=== PATIENT | male | born 1950 | race Caucasian/White ===

== ENCOUNTER 2017-12-03 14:32 | Inpatient (IN) | payer OTHER ==
[2017-12-03 15:31] VITALS: BMI 23.6
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
[2017-12-03] MEDS ORDERED: LOPERAMIDE HCL 2 MG CAPSULE PO PRN (17:16)
[2017-12-03] MEDS ORDERED: P-EPHED 60MG/TRIPROLIDI 2.5MG TABLET PO PRN (17:16)
[2017-12-03] MEDS ORDERED: guaiFENesin/D-METHORPHAN HB 10 ML UNIT-DOSE CUPS PO PRN (17:16)
[2017-12-03] MEDS ORDERED: MAGNESIUM HYDROX 2400MG/30ML ORAL SUSPENSION 30 ML CUP PO PRN (17:16)
[2017-12-03] MEDS ORDERED: MENTHOL/PHENOL 1 EACH UD MM PRN (17:16)
[2017-12-03] MEDS ORDERED: MAGNESIUM CITRATE 300 ML BOTTLE PO PRN (17:16)
[2017-12-03] MEDS ORDERED: IBUPROFEN 400 MG TABLET (FP) PO PRN (17:16)
[2017-12-03] MEDS ORDERED: MAG HYDROX/AL HYDROX/SIMETH 30 ML UNIT-DOSE CUP PO PRN (17:16)
[2017-12-03] MEDS ORDERED: METHADONE HCL 10 MG TABLET (FOR DETOX USE ONLY) PO ONE ×2 (17:16→23:00)
[2017-12-03] MEDS ORDERED: ACETAMINOPHEN 325 MG TABLET (FP) PO PRN (17:16)
[2017-12-03] MEDS ORDERED: chlordiazePOXIDE HCL 25 MG CAPSULE PO ONE (17:19)
[2017-12-03] MEDS ORDERED: chlordiazePOXIDE HCL 25 MG CAPSULE PO PRN (17:19)
[2017-12-03] MEDS: NICOTINE 21 MG/24 HOURS TOPICAL PATCH TD SCH (18:24)
[2017-12-03 22:01] LABS: URINE APPEARANCE TURBID; URINE BILIRUBIN NEGATIVE (<2.0 mg/dL); URINE COLOR YELLOW; URINE GLUCOSE (UA) NEGATIVE (NEGATIVE); URINE KETONE NEGATIVE (NEGATIVE); URINE LEUK ESTERASE NEGATIVE (NEGATIVE); URINE NITRITE NEGATIVE (NEGATIVE); URINE UROBILINOGEN 4.0 E.U/dl mg/dL (0.2-1.0)
[2017-12-03 22:02] LABS: URINE PROTEIN 1+ (NEGATIVE)
[2017-12-03 22:08] LABS: URINE MUCUS FEW
[2017-12-03] MEDS: THIAMINE HCL 100 MG TABLET (FP) PO SCH (22:17)
[2017-12-03] MEDS: chlordiazePOXIDE HCL 25 MG CAPSULE PO SCH (22:17)
[2017-12-03] MEDS: NICOTINE POLACRILEX 2 MG GUM BC PRN (22:20)
[2017-12-04] MEDS: chlordiazePOXIDE HCL 25 MG CAPSULE PO SCH ×4 (05:56→22:16)
[2017-12-04] MEDS: NICOTINE POLACRILEX 2 MG GUM BC PRN ×2 (06:14→10:13)
--- NOTE | 2017-12-04 08:49 | EKG ---
Test Reason : Blood Pressure : / mmHG Vent. Rate : 060 BPM Atrial Rate : 060 BPM P-R Int : 152 ms QRS Dur : 086 ms QT Int : 412 ms P-R-T Axes : 022 025 047 degrees QTc Int : 412 ms NORMAL SINUS RHYTHM NORMAL ECG NO PREVIOUS ECGS AVAILABLE Confirmed by SHANE AVILA, VAL ([id number]) on 12/04/2017 8:49:20 AM Referred By: Confirmed By:VAL LYNN MD
[2017-12-04] MEDS ORDERED: METHADONE HCL 10 MG TABLET (FOR DETOX USE ONLY) PO ONE (10:00)
[2017-12-04] MEDS: NICOTINE 21 MG/24 HOURS TOPICAL PATCH TD SCH (10:11)
[2017-12-04] MEDS: PRENATAL VITAMINS W/ FOLIC ACID TABLET (FP) PO SCH (10:12)
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
[2017-12-04 10:33] LABS: HEMATOCRIT 44.1 % (35.4-49); HEMOGLOBIN 14.4 GM/dL (11.7-16.9); MCH 28.8 pg (25.7-33.7); MCHC 32.7 g/dl (32.0-35.9); MEAN CELL VOLUME 88.1 fl (80-96); MEAN PLT VOLUME 10.4 fl (7.5-11.1); PLATELET COUNT 117 K/MM3 (134-434); RBC 5.01 M/mm3 (4.00-5.60); RDW 13.7 % (11.9-15.9); WHITE BLOOD COUNT 6.3 K/mm3 (4.0-10.0)
[2017-12-04 10:48] LABS: ALBUMIN 3.6 g/dl (3.4-5.0); ANION GAP 5 (8-16); BLOOD UREA NITROGEN 16 mg/dL (7-18); CALCIUM 8.5 mg/dL (8.5-10.1); CHLORIDE 109 mmol/L (98-107); CO2 29 mmol/L (21-32); GLUCOSE,RANDOM 103 mg/dL (74-106); POTASSIUM 4.1 mmol/L (3.5-5.1); SODIUM 143 mmol/L (136-145)
[2017-12-04 10:59] LABS: ALK PHOS 83 U/L (45-117); BILIRUBIN,TOTAL 0.5 mg/dL (0.2-1.0); CREATININE 1.1 mg/dL (0.7-1.3); SGOT/AST 29 U/L (15-37); SGPT/ALT 33 U/L (12-78); TOT PROT 7.2 g/dl (6.4-8.2)
--- NOTE | 2017-12-04 14:28 | PN ---
[facility] CIWA - CIWA Score Nausea/Vomitin Muscle Tremors: 3 Anxiety: 3 Agitation: 3 Paroxysmal Sweats: 3 Orientation: 0-Oriented Tacttile Disturbances: 0-None Auditory Disturbances: 0-None Visual Disturbances: 0-None Headache: 0-None Present CIWA-Ar Total Score: 15 S COWS - Scale Resting Pulse: 0= [place] 80 or Below Sweatin=Flushed/Facial Moisture Restless Observation: 0= Sits Still Pupil Size: 0= Normal to Room Light Bone or Joint Aches: 1= Mild Discomfort Runny Nose/ Eye Tearin= Nasal Congestion GI Upset > 30mins: 1= Stomach Cramp Tremor Observation of Outstretched Hands: 2= Slight Tremor Visible Yawning Observation: 1= 1-2x During Session Anxiety or Irritability: 2=Irritable/Anxious Goose Flesh Skin: 0=Smooth Skin COWS Score: 10 [facility] Progress Note (SOAP) Subjective: Sleep disturbance Sweats abd cramp chills Objective: 12/04/17 14:21 A & O x 3 Vital Signs Temperature 96.6 F L 12/04/17 13:04 Pulse Rate 78 12/04/17 13:04 Respiratory Rate 18 12/04/17 13:04 Blood Pressure 104/67 12/04/17 13:04 O2 Sat by Pulse Oximetry (%) Laboratory Last Values WBC 6.3 K/mm3 (4.0-10.0) 12/04/17 07:55 RBC 5.01 M/mm3 (4.00-5.60) 12/04/17 07:55 Hgb 14.4 GM/dL (11.7-16.9) 12/04/17 07:55 Hct 44.1 % (35.4-49) 12/04/17 07:55 MCV 88.1 fl (80-96) 12/04/17 07:55 MCH 28.8 pg (25.7-33.7) 12/04/17 07:55 MCHC 32.7 g/dl (32.0-35.9) 12/04/17 07:55 RDW 13.7 % (11.9-15.9) 12/04/17 07:55 Plt Count 117 K/MM3 (134-434) L 12/04/17 07:55 MPV 10.4 fl (7.5-11.1) 12/04/17 07:55 Sodium 143 mmol/L (136-145) 12/04/17 07:55 Potassium 4.1 mmol/L (3.5-5.1) 12/04/17 07:55 Chloride 109 mmol/L (98-107) H 12/04/17 07:55 Carbon Dioxide 29 mmol/L (21-32) 12/04/17 07:55 Anion Gap 5 (8-16) L 12/04/17 07:55 BUN 16 mg/dL (7-18) 12/04/17 07:55 Creatinine 1.1 mg/dL (0.7-1.3) 12/04/17 07:55 Creat Clearance w eGFR > 60 (>60) 12/04/17 07:55 POC Glucometer 120 UNITS (80-120) 12/04/17 05:58 Random Glucose 103 mg/dL (74-106) 12/04/17 07:55 Calcium 8.5 mg/dL (8.5-10.1) 12/04/17 07:55 Total Bilirubin 0.5 mg/dL (0.2-1.0) 12/04/17 07:55 AST 29 U/L (15-37) 12/04/17 07:55 ALT 33 U/L (12-78) 12/04/17 07:55 Alkaline Phosphatase 83 U/L (45-117) 12/04/17 07:55 Total Protein 7.2 g/dl (6.4-8.2) 12/04/17 07:55 Albumin 3.6 g/dl (3.4-5.0) 12/04/17 07:55 Urine Color Yellow 12/03/17 20:00 Urine Appearance Turbid 12/03/17 20:00 Urine pH 5.0 (5.0-8.0) 12/03/17 20:00 Ur Specific [place] 1.031 (1.001-1.035) 12/03/17 20:00 Urine Protein 1+ (NEGATIVE) H 12/03/17 20:00 Urine Glucose (UA) Negative (NEGATIVE) 12/03/17 20:00 Urine Ketones Negative (NEGATIVE) 12/03/17 20:00 Urine Blood Negative (NEGATIVE) 12/03/17 20:00 Urine Nitrite Negative (NEGATIVE) 12/03/17 20:00 Urine Bilirubin Negative (<2.0 mg/dL) 12/03/17 20:00 Urine Urobilinogen 4.0 e.u/dl mg/dL (0.2-1.0) 12/03/17 20:00 Ur Leukocyte Esterase Negative (NEGATIVE) 12/03/17 20:00 Urine WBC (Auto) 45 /hpf (3-5) 12/03/17 20:00 Urine RBC (Auto) 2 /hpf (0-3) 12/03/17 20:00 Urine Mucus Few 12/03/17 20:00 RPR Titer Nonreactive (NONREACTIVE) 12/04/17 07:55 labs noted; urine turbid, abnormal Assessment: 12/04/17 14:28 withdrawal sx abnormal urine test Plan: continue detox increase hydration
[2017-12-04] MEDS: THIAMINE HCL 100 MG TABLET (FP) PO SCH (22:16)
[2017-12-04] MEDS: MELATONIN 5 MG TABLETS PO PRN (22:17)
[2017-12-05] MEDS: chlordiazePOXIDE HCL 25 MG CAPSULE PO SCH ×3 (05:54→16:43)
[2017-12-05] MEDS ORDERED: METHADONE HCL 5 MG TABLET (FOR DETOX USE ONLY) PO ONE (10:00)
[2017-12-05] MEDS: NICOTINE 21 MG/24 HOURS TOPICAL PATCH TD SCH (10:18)
[2017-12-05] MEDS: NICOTINE POLACRILEX 2 MG GUM BC PRN (10:19)
[2017-12-05] MEDS: PRENATAL VITAMINS W/ FOLIC ACID TABLET (FP) PO SCH (10:19)
[2017-12-05] MEDS: THIAMINE HCL 100 MG TABLET (FP) PO SCH (22:15)
[2017-12-05] MEDS: chlordiazePOXIDE 5 MG CAPSULE PO SCH (22:15)
--- NOTE | 2017-12-05 22:15 | PN ---
S CIWA - CIWA Score Nausea/Vomitin-No Nausea/No Vomiting Muscle Tremors: 3 Anxiety: 4-Mod. Anxious/Guarded Agitation: 3 Paroxysmal Sweats: No Perspiration Orientation: 2-Disoriented Date<2 days Tacttile Disturbances: 2-Mild Itch/Numbness/Burn Auditory Disturbances: 0-None Visual Disturbances: 2-Mild Sensitivity Headache: 0-None Present CIWA-Ar Total Score: 16 BHS COWS - Scale Resting Pulse: 0= [place] 80 or Below Sweatin= No chills or Flushing Restless Observation: 1= Difficult to Sit Still Pupil Size: 0= Normal to Room Light Bone or Joint Aches: 0= None Runny Nose/ Eye Tearin= Runny Nose/Eyes GI Upset > 30mins: 2= Nausea/Diarrhea Tremor Observation of Outstretched Hands: 2= Slight Tremor Visible Yawning Observation: 1= 1-2x During Session Anxiety or Irritability: 2=Irritable/Anxious Goose Flesh Skin: 3=Piloerection COWS Score: 13 S Progress Note (SOAP) Subjective: Tremors, Anxious, Stomach Cramping, Diarrhea. Objective: PATIENT A & O X 2 (UNCERTAIN ABOUT CURRENT DAY / DATE). PATIENT OBSERVED AMBULATING ON UNIT. NO ACUTE DISTRESS. 12/05/17 22:13 Vital Signs Temperature 96.7 F L 12/05/17 21:59 Pulse Rate 61 12/05/17 21:59 Respiratory Rate 16 12/05/17 21:59 Blood Pressure 147/68 12/05/17 21:59 O2 Sat by Pulse Oximetry (%) Laboratory Tests 12/03/17 12/03/17 12/04/17 16:11 20:00 05:58 WBC RBC Hgb Hct MCV MCH MCHC RDW Plt Count MPV Sodium Potassium Chloride Carbon Dioxide Anion Gap BUN Creatinine Creat Clearance w eGFR POC Glucometer 115 120 Random Glucose Calcium Total Bilirubin AST ALT Alkaline Phosphatase Total Protein Albumin Urine Color Yellow Urine Appearance Turbid Urine pH 5.0 Ur Specific [place] 1.031 Urine Protein 1+ H Urine Glucose (UA) Negative Urine Ketones Negative Urine Blood Negative Urine Nitrite Negative Urine Bilirubin Negative Urine Urobilinogen 4.0 e.u/dl Ur Leukocyte Esterase Negative Urine WBC (Auto) 45 Urine RBC (Auto) 2 Urine Mucus Few RPR Titer 05/12/04/17 12/04/17 07:55 07:55 07:55 WBC 6.3 RBC 5.01 Hgb 14.4 Hct 44.1 MCV 88.1 MCH 28.8 MCHC 32.7 RDW 13.7 Plt Count 117 L MPV 10.4 Sodium 143 Potassium 4.1 Chloride 109 H Carbon Dioxide 29 Anion Gap 5 L BUN 16 Creatinine 1.1 Creat Clearance w eGFR > 60 POC Glucometer Random Glucose 103 Calcium 8.5 Total Bilirubin 0.5 AST 29 ALT 33 Alkaline Phosphatase 83 Total Protein 7.2 Albumin 3.6 Urine Color Urine Appearance Urine pH Ur Specific [place] Urine Protein Urine Glucose (UA) Urine Ketones Urine Blood Urine Nitrite Urine Bilirubin Urine Urobilinogen Ur Leukocyte Esterase Urine WBC (Auto) Urine RBC (Auto) Urine Mucus RPR Titer Nonreactive LABS NOTED. Assessment: 12/05/17 22:13 WITHDRAWAL SYMPTOMS. Plan: CONTINUE DETOX. INCREASE DAILY PO FLUID INTAKE. PRN IMMODIUM FOR DIARRHEA.
[2017-12-05] MEDS: MELATONIN 5 MG TABLETS PO PRN (22:35)
[2017-12-06] MEDS: chlordiazePOXIDE 5 MG CAPSULE PO SCH ×3 (05:18→17:31)
[2017-12-06] MEDS ORDERED: METHADONE HCL 5 MG TABLET (FOR DETOX USE ONLY) PO ONE (10:00)
[2017-12-06] MEDS: NICOTINE POLACRILEX 2 MG GUM BC PRN ×2 (10:05→22:23)
[2017-12-06] MEDS: PRENATAL VITAMINS W/ FOLIC ACID TABLET (FP) PO SCH (10:06)
[2017-12-06] MEDS: NICOTINE 21 MG/24 HOURS TOPICAL PATCH TD SCH (10:06)
[2017-12-06] MEDS: METHYL SALICYLATE/MENTHOL OINT 30 GM TUBE TP SCH ×2 (11:12→22:18)
--- NOTE | 2017-12-06 14:00 | PN ---
BHS Progress Note (SOAP) Subjective: Body Aches, Anxious, Interrupted Sleep. Objective: PATIENT A & O X 3, OBSERVED AMBULATING ON UNIT. NO ACUTE DISTRESS. 12/06/17 13:59 Vital Signs Temperature 97.9 F 12/06/17 13:40 Pulse Rate 59 L 12/06/17 13:40 Respiratory Rate 18 12/06/17 13:40 Blood Pressure 119/59 12/06/17 13:40 O2 Sat by Pulse Oximetry (%) Laboratory Tests 12/03/17 12/03/17 12/04/17 16:11 20:00 05:58 WBC RBC Hgb Hct MCV MCH MCHC RDW Plt Count MPV Sodium Potassium Chloride Carbon Dioxide Anion Gap BUN Creatinine Creat Clearance w eGFR POC Glucometer 115 120 Random Glucose Calcium Total Bilirubin AST ALT Alkaline Phosphatase Total Protein Albumin Urine Color Yellow Urine Appearance Turbid Urine pH 5.0 Ur Specific [place] 1.031 Urine Protein 1+ H Urine Glucose (UA) Negative Urine Ketones Negative Urine Blood Negative Urine Nitrite Negative Urine Bilirubin Negative Urine Urobilinogen 4.0 e.u/dl Ur Leukocyte Esterase Negative Urine WBC (Auto) 45 Urine RBC (Auto) 2 Urine Mucus Few RPR Titer 12/04/17 12/04/17 12/04/17 07:55 07:55 07:55 WBC 6.3 RBC 5.01 Hgb 14.4 Hct 44.1 MCV 88.1 MCH 28.8 MCHC 32.7 RDW 13.7 Plt Count 117 L MPV 10.4 Sodium 143 Potassium 4.1 Chloride 109 H Carbon Dioxide 29 Anion Gap 5 L BUN 16 Creatinine 1.1 Creat Clearance w eGFR > 60 POC Glucometer Random Glucose 103 Calcium 8.5 Total Bilirubin 0.5 AST 29 ALT 33 Alkaline Phosphatase 83 Total Protein 7.2 Albumin 3.6 Urine Color Urine Appearance Urine pH Ur Specific [place] Urine Protein Urine Glucose (UA) Urine Ketones Urine Blood Urine Nitrite Urine Bilirubin Urine Urobilinogen Ur Leukocyte Esterase Urine WBC (Auto) Urine RBC (Auto) Urine Mucus RPR Titer Nonreactive LABS NOTED. Assessment: 12/06/17 13:59 WITHDRAWAL SYMPTOMS. Plan: CONTINUE DETOX.
[2017-12-06] MEDS: chlordiazePOXIDE HCL 10 MG CAPSULE PO SCH (22:19)
[2017-12-06] MEDS: THIAMINE HCL 100 MG TABLET (FP) PO SCH (22:19)
[2017-12-06] MEDS: MELATONIN 5 MG TABLETS PO PRN (22:19)
[2017-12-07] MEDS: chlordiazePOXIDE HCL 10 MG CAPSULE PO SCH ×3 (07:28→17:09)
[2017-12-07] MEDS ORDERED: METHADONE HCL 10 MG TABLET (FOR DETOX USE ONLY) PO ONE (10:00)
[2017-12-07] MEDS: NICOTINE POLACRILEX 2 MG GUM BC PRN (10:17)
[2017-12-07] MEDS: NICOTINE 21 MG/24 HOURS TOPICAL PATCH TD SCH (10:17)
[2017-12-07] MEDS: PRENATAL VITAMINS W/ FOLIC ACID TABLET (FP) PO SCH (10:17)
[2017-12-07] MEDS: METHYL SALICYLATE/MENTHOL OINT 30 GM TUBE TP SCH ×2 (10:17→22:19)
--- NOTE | 2017-12-07 11:26 | PN ---
BHS Progress Note (SOAP) Subjective: SLIGHT ANXIETY,BACK PAIN. ALERT O X 3. LAST DOSE OF 5 MG METHADONE TAPER IN THE MORNING. Objective: 12/07/17 11:24 Vital Signs 12/07/17 12/07/17 12/07/17 03:30 06:01 09:16 Temperature 97.0 F L 97.0 F L Pulse Rate 61 58 L Respiratory 18 18 16 Rate Blood Pressure 115/68 98/55 Laboratory Tests 12/03/17 12/03/17 12/04/17 16:11 20:00 05:58 WBC RBC Hgb Hct MCV MCH MCHC RDW Plt Count MPV Sodium Potassium Chloride Carbon Dioxide Anion Gap BUN Creatinine Creat Clearance w eGFR POC Glucometer 115 120 Random Glucose Calcium Total Bilirubin AST ALT Alkaline Phosphatase Total Protein Albumin Urine Color Yellow Urine Appearance Turbid Urine pH 5.0 Ur Specific [place] 1.031 Urine Protein 1+ H Urine Glucose (UA) Negative Urine Ketones Negative Urine Blood Negative Urine Nitrite Negative Urine Bilirubin Negative Urine Urobilinogen 4.0 e.u/dl Ur Leukocyte Esterase Negative Urine WBC (Auto) 45 Urine RBC (Auto) 2 Urine Mucus Few RPR Titer 12/04/17 12/04/17 12/04/17 07:55 07:55 07:55 WBC 6.3 RBC 5.01 Hgb 14.4 Hct 44.1 MCV 88.1 MCH 28.8 MCHC 32.7 RDW 13.7 Plt Count 117 L MPV 10.4 Sodium 143 Potassium 4.1 Chloride 109 H Carbon Dioxide 29 Anion Gap 5 L BUN 16 Creatinine 1.1 Creat Clearance w eGFR > 60 POC Glucometer Random Glucose 103 Calcium 8.5 Total Bilirubin 0.5 AST 29 ALT 33 Alkaline Phosphatase 83 Total Protein 7.2 Albumin 3.6 Urine Color Urine Appearance Urine pH Ur Specific [place] Urine Protein Urine Glucose (UA) Urine Ketones Urine Blood Urine Nitrite Urine Bilirubin Urine Urobilinogen Ur Leukocyte Esterase Urine WBC (Auto) Urine RBC (Auto) Urine Mucus RPR Titer Nonreactive Assessment: 12/07/17 11:24 WITHDRAWAL SX Plan: CONTINUE DETOX
[2017-12-07] MEDS: MELATONIN 5 MG TABLETS PO PRN (22:18)
[2017-12-07] MEDS: THIAMINE HCL 100 MG TABLET (FP) PO SCH (22:19)
[2017-12-08] MEDS ORDERED: METHADONE HCL 5 MG TABLET (FOR DETOX USE ONLY) PO ONE (06:00)
[2017-12-08 07:27] VITALS: BP 107/63; PULSE 56; TEMP 97.8
[2017-12-08] MEDS: NICOTINE POLACRILEX 2 MG GUM BC PRN (08:31)
--- NOTE | 2017-12-08 14:06 | PN ---
BHS Progress Note (SOAP) Subjective: DETOX COMPLETED. PT REPORTS PRIMARY CARE WITH [facility] AT [facility]. PMD IS DR. ELLIS. Objective: 12/08/17 14:03 Vital Signs 12/08/17 07:27 Temperature 97.8 F Pulse Rate 56 L Respiratory 19 Rate Blood Pressure 107/63 Laboratory Tests 12/03/17 12/03/17 12/04/17 16:11 20:00 05:58 WBC RBC Hgb Hct MCV MCH MCHC RDW Plt Count MPV Sodium Potassium Chloride Carbon Dioxide Anion Gap BUN Creatinine Creat Clearance w eGFR POC Glucometer 115 120 Random Glucose Calcium Total Bilirubin AST ALT Alkaline Phosphatase Total Protein Albumin Urine Color Yellow Urine Appearance Turbid Urine pH 5.0 Ur Specific [place] 1.031 Urine Protein 1+ H Urine Glucose (UA) Negative Urine Ketones Negative Urine Blood Negative Urine Nitrite Negative Urine Bilirubin Negative Urine Urobilinogen 4.0 e.u/dl Ur Leukocyte Esterase Negative Urine WBC (Auto) 45 Urine RBC (Auto) 2 Urine Mucus Few RPR Titer 12/04/17 12/04/17 12/04/17 07:55 07:55 07:55 WBC 6.3 RBC 5.01 Hgb 14.4 Hct 44.1 MCV 88.1 MCH 28.8 MCHC 32.7 RDW 13.7 Plt Count 117 L MPV 10.4 Sodium 143 Potassium 4.1 Chloride 109 H Carbon Dioxide 29 Anion Gap 5 L BUN 16 Creatinine 1.1 Creat Clearance w eGFR > 60 POC Glucometer Random Glucose 103 Calcium 8.5 Total Bilirubin 0.5 AST 29 ALT 33 Alkaline Phosphatase 83 Total Protein 7.2 Albumin 3.6 Urine Color Urine Appearance Urine pH Ur Specific [place] Urine Protein Urine Glucose (UA) Urine Ketones Urine Blood Urine Nitrite Urine Bilirubin Urine Urobilinogen Ur Leukocyte Esterase Urine WBC (Auto) Urine RBC (Auto) Urine Mucus RPR Titer Nonreactive Assessment: 12/08/17 14:03 MEDICALLY STABLE Plan: D/C PT TODAY.
--- NOTE | 2017-12-08 14:21 | DS ---
[facility] Detox Discharge Summary Admission Date: 12/03/17 Discharge Date: 12/08/17 - History Present History: Alcohol Dependence, Opioid Dependence Additional Comments: DETOX COMPLETED. ALERT O X 3. NAD.PT REPORTS HIS PMD IS DR. ELLIS AT [facility]. Pertinent Past History: PLEASE SEE DX BELOW - Physical Exam Results Vital Signs: Vital Signs Temperature 97.8 F 12/08/17 07:27 Pulse Rate 56 L 12/08/17 07:27 Respiratory Rate 19 12/08/17 07:27 Blood Pressure 107/63 12/08/17 07:27 O2 Sat by Pulse Oximetry (%) Pertinent Admission Physical Exam Findings: WITHDRAWAL SX Vital Signs 12/08/17 07:27 Temperature 97.8 F Pulse Rate 56 L Respiratory 19 Rate Blood Pressure 107/63 Laboratory Tests 12/03/17 12/03/17 12/04/17 16:11 20:00 05:58 WBC RBC Hgb Hct MCV MCH MCHC RDW Plt Count MPV Sodium Potassium Chloride Carbon Dioxide Anion Gap BUN Creatinine Creat Clearance w eGFR POC Glucometer 115 120 Random Glucose Calcium Total Bilirubin AST ALT Alkaline Phosphatase Total Protein Albumin Urine Color Yellow Urine Appearance Turbid Urine pH 5.0 Ur Specific [place] 1.031 Urine Protein 1+ H Urine Glucose (UA) Negative Urine Ketones Negative Urine Blood Negative Urine Nitrite Negative Urine Bilirubin Negative Urine Urobilinogen 4.0 e.u/dl Ur Leukocyte Esterase Negative Urine WBC (Auto) 45 Urine RBC (Auto) 2 Urine Mucus Few RPR Titer 12/04/17 12/04/17 12/04/17 07:55 07:55 07:55 WBC 6.3 RBC 5.01 Hgb 14.4 Hct 44.1 MCV 88.1 MCH 28.8 MCHC 32.7 RDW 13.7 Plt Count 117 L MPV 10.4 Sodium 143 Potassium 4.1 Chloride 109 H Carbon Dioxide 29 Anion Gap 5 L BUN 16 Creatinine 1.1 Creat Clearance w eGFR > 60 POC Glucometer Random Glucose 103 Calcium 8.5 Total Bilirubin 0.5 AST 29 ALT 33 Alkaline Phosphatase 83 Total Protein 7.2 Albumin 3.6 Urine Color Urine Appearance Urine pH Ur Specific [place] Urine Protein Urine Glucose (UA) Urine Ketones Urine Blood Urine Nitrite Urine Bilirubin Urine Urobilinogen Ur Leukocyte Esterase Urine WBC (Auto) Urine RBC (Auto) Urine Mucus RPR Titer Nonreactive - Treatment Hospital Course: Detox Protocol Followed, Detoxed Safely, Responded well, Discharged Condition Good - Medication Discharge Medications: Ambulatory Orders Albuterol Sulfate Inhaler - [Ventolin Hfa Inhaler -] 1 - 2 inh PO Q4H PRN Buprenorphine/Naloxone [Suboxone 8Mg/2Mg Sl Film -] 1 each SL BID 12/05/17 Carvedilol [Coreg -] 6.25 mg PO BID 12/05/17 Metformin HCl [Glucophage] 500 mg PO BID 12/05/17 Tamsulosin HCl [Flomax] 0.4 mg PO DAILY 12/05/17 - Diagnosis (1) Alcohol dependence with uncomplicated withdrawal Status: Acute (2) Nicotine dependence Status: Acute Qualifiers: Nicotine product type: cigarettes Substance use status: in withdrawal Qualified Code(s): F17.213 - Nicotine dependence, cigarettes, with withdrawal (3) Opioid dependence with withdrawal Status: Acute (4) Weight loss Status: Acute - AMA Did Patient Leave Against Medical Advice: No
== END 2017-12-08 08:50 | disposition home or self-care (01) | DRG 897 ==
LOC: YASAS 14:32 → Y6N 17:03 → Y3N 17:12
PROVIDERS: ADMIT Surgery; ATTEND Internal Medicine
PROC: HZ2ZZZZ Detoxification Services for Substance Abuse Treatment (ICD-10-PCS; principal; 2017-12-03)
DX: F11.23 Opioid dependence with withdrawal (principal); F10.230 Alcohol dependence with withdrawal, uncomplicated; F17.213 Nicotine dependence, cigarettes, with withdrawal; F51.05 Insomnia due to other mental disorder; F41.8 Other specified anxiety disorders; R63.4 Abnormal weight loss; Z68.23 Body mass index [BMI] 23.0-23.9, adult; Z87.828 Personal history of other (healed) physical injury and trauma
CPT/HCPCS: 36415; 71045-TC-FY; 80053; 81003; 81015; 82962; 85027; 86593; 93005; 93010